=== PATIENT | female | born 1940 | race Caucasian/White ===

== ENCOUNTER → 2017-02-03 | Outpatient (CLI) | payer MEDICARE ==
--- NOTE | 2017-02-03 16:54 | Diagnostic Imaging Report ---
INDICATION: Intermittent left arm pain. DISCUSSION: Two views of the chest were obtained with no comparison. The heart and lungs are normal. Age-related degenerative changes are present throughout the thoracic spine. No acute osseous abnormality is identified. IMPRESSION: Negative chest. Dictated by: Dictated on workstation # [id number]
== END ==
LOC: RAD 15:34
PROVIDERS: ATTEND Physician Assistant Surgical
DX: M79.602 Pain in left arm (principal)
CPT/HCPCS: 71020

== ENCOUNTER → 2017-02-06 | Outpatient (CLI) | payer MEDICARE ==
[2017-02-06 08:50] LABS: BASOPHILS % (AUTO) 1 % (0-2); EOSINOPHILS # (AUTO) 0.2 10^3uL; EOSINOPHILS % (AUTO) 4 % (0-4); MEAN CORPUSCULAR HEMOGLOBIN 28.3 PG (26.0-34.0); MEAN CORPUSCULAR HGB CONC 34.2 g/dL (31.0-37.0); MEAN CORPUSCULAR VOLUME 83 FL (80-100); MEAN PLATELET VOLUME 10.3 FL (6.0-9.5); MONOCYTES # (AUTO) 0.6 X10^3; MONOCYTES % (AUTO) 12 % (3-11); NEUTROPHILS # (AUTO) 2.3 X10^3; NEUTROPHILS % (AUTO) 44 % (51-67); PLATELET COUNT 228 10^3uL (150-450); WHITE BLOOD COUNT 5.17 10^3uL (4.0-11.0)
[2017-02-06 08:52] LABS: BILIRUBIN,URINE Negative (Negative); CLARITY,URINE Clear; COLOR,URINE Yellow; GLUCOSE, URINE (UA) Negative (Negative); LEUKOCYTE ESTERASE ,URINE Negative (Negative); UROBILINOGEN,URINE 0.2 mg/dL (0.2-1.0)
[2017-02-06 08:58] LABS: ALBUMIN 4.1 g/dL (3.4-5.0); ANION GAP 15.6 MEQ/L (3-15); CALCULATED IONIZED CALCIUM 3.8 mg/dL (3.8-4.6); TOTAL PROTEIN 7.3 g/dL (6.4-8.5)
[2017-02-06 09:28] LABS: RBC,URINE 0-2 /HPF; URINE CENTRIFUGED VOLUME 12 mL
== END ==
LOC: LAB 08:41
PROVIDERS: ATTEND Family Medicine
DX: I10 Essential (primary) hypertension (principal); E03.8 Other specified hypothyroidism; E78.4 Other hyperlipidemia
CPT/HCPCS: 36415; 80053; 80061; 81003; 81015; 84443; 85025